=== PATIENT | male | born 1985 | race African-American/Black ===

== ENCOUNTER 2017-02-01 09:30 | Emergency (ER) | payer SELFPAY ==
[2017-02-01 09:40] VITALS: BP 138/79
--- NOTE | 2017-02-01 09:58 | EDM.PDOC ---
ED HPI GENERAL MEDICAL PROBLEM - General Chief Complaint: Lower Extremity Injury/Pain Stated Complaint: RIGHT LEG INJURY Time Seen by Provider: 02/01/17 09:51 - History of Present Illness INITIAL COMMENTS - FREE TEXT/NARRATIVE: 31-year-old male presents emergency room room with a right lower leg injury. This occurred this morning the patient was working on a oil rig, he slipped getting his right lower leg caught in a tight spot he twisted it and bumped his anterior orta. He has some mild discomfort around his ankle significant discomfort when he tries to bear weight he can wiggle his toes but it causes pain in his lower leg. He denies numbness or tingling in the lower extremity. Past medical history: Unremarkable. His last tetanus shot was last year. Left Leg Pain Score (Numeric/FACES): 10 - Related Data Allergies Allergy/AdvReac Type Severity Reaction Status Date / Time No Known Allergies Allergy Verified 02/01/17 09:40 Home Meds: Home Meds . [No Known Home Meds] 02/01/17 [History] Past Medical History - Past Health History Medical/Surgical History: Denies Medical/Surgical History Cardiovascular History: Reports: None - Past Surgical History Cardiovascular Surgical History: Reports: None Social & Family History - Family History Family Medical History: Noncontributory - Tobacco Use Smoking Status *Q: Never Smoker Review of Systems - Review of Systems Review Of Systems: See Below Constitutional: Reports: No Symptoms Respiratory: Reports: No Symptoms Cardiovascular: Reports: No Symptoms GI/Abdominal: Reports: No Symptoms ED EXAM, GENERAL - Physical Exam Exam: See Below Exam Limited By: No Limitations General Appearance: Alert, No Apparent Distress Respiratory/Chest: No Respiratory Distress, Lungs Clear, Normal Breath Sounds Cardiovascular: Regular Rate, Rhythm, No Edema, No Murmur Extremities: Other (Patient has pain mostly just above his right ankle and to a lesser degree involving the ankle. He doesn't complain of foot pain but he is a little apprehensive with exam. He's had some vague discomfort around the ankle with palpation no significant swelling. Discomfort seems to be anterior lower leg distal half he has a small abrasion with skin break over the anterior orta a [address] way up from the ankle.) Neurological: No Motor/Sensory Deficits Course - Vital Signs Last Recorded V/S: Last Vital Signs Temp 36.6 C 02/01/17 09:37 Pulse 72 02/01/17 09:37 Resp 18 02/01/17 09:37 BP 138/79 02/01/17 09:37 Pulse Ox 100 02/01/17 09:37 - Orders/Labs/Meds Orders: Active Orders 24 hr Category Date Time Status Foot Comp Min 3V Rt [CR] Stat Exams 02/01/17 09:58 Taken Tibia Fibula Rt [CR] Stat Exams 02/01/17 09:58 Taken Durable Medical Equipment for Discharge [DME for Oth 02/01/17 10:55 Ordered Discharge] [COMM] Stat - Re-Assessments/Exams Free Text/Narrative Re-Assessment/Exam: 02/01/17 11:28 X-ray examination of his right foot and leg show no acute fracture dislocation. Patient had a Western walker placed and is ambulatory doing well with this. Prior to the Western walker been placed patient had some antibiotic ointment and Band-Aid placed over his small abrasion on his anterior orta. Departure - Departure Time of Disposition: 11:28 Disposition: Home, Self-Care 01 Clinical Impression: Soft tissue injury of right lower leg - Discharge Information Referrals: PCP,None [Primary Care Provider] - Forms: ED Department Discharge Additional Instructions: Return to the emergency room with any questions or problems. Followup with your Workmen's Comp. physician early next week for recheck. Use the walking boot until advised not to. Ibuprofen 200-400 mg 3 times daily with meals as needed for discomfort. Ice your lower leg as tolerated. Keep the leg elevated as much as tolerated. He may return to work however no climbing other than stairs with a good handrail. No heavy lifting 20 pounds and no repetitive twisting. - My Orders Last 24 Hours: My Active Orders 02/01/17 09:58 Foot Comp Min 3V Rt [CR] Stat Tibia Fibula Rt [CR] Stat 02/01/17 10:55 Durable Medical Equipment for Discharge [DME for Discharge] [COMM] Stat - Assessment/Plan Last 24 Hours: My Active Orders 02/01/17 09:58 Foot Comp Min 3V Rt [CR] Stat Tibia Fibula Rt [CR] Stat 02/01/17 10:55 Durable Medical Equipment for Discharge [DME for Discharge] [COMM] Stat
--- NOTE | 2017-02-05 09:36 | CR ---
Right foot: Three views of the right foot were obtained. Comparison: No previous study. Joint spaces are preserved. No calcaneal spurs are seen. No discrete fracture or other abnormality is seen. Impression: 1. No abnormality is identified on right foot exam. Diagnostic code #1
--- NOTE | 2017-02-05 09:38 | CR ---
Right tibia and fibula: AP and lateral views of the right tibia and fibula were obtained. No fracture or other abnormality is seen. Impression: 1. No abnormality is seen on two-view right tibia and fibula study. Diagnostic code #1
== END 2017-02-01 11:36 | disposition home or self-care (01) ==
LOC: JD.ED 09:30
DX: S80.811A Abrasion, right lower leg, initial encounter (principal); X50.1XXA Overexertion from prolonged static or awkward postures, initial encounter; Y99.0 Civilian activity done for income or pay
CPT/HCPCS: 73590-26-RT; 73590-RT; 73630-26-RT; 73630-RT; 99282; 99283